=== PATIENT | female | born 1960 | race Two or more races ===

== ENCOUNTER 2022-02-10 03:44 | Inpatient (IN) | payer MEDICARE, OTHER ==
[~2022-02-10] VITALS: Ht 157.5 cm; Wt 81.6 kg
--- NOTE | 2022-02-10 03:57 | NUR ---
bebeto from home to er bed 9, aaox4. not in resp distress. brought in for a near syncope. pt was walking to the kitchen from the bedroom when she felt dizzy and lightheaded. pt then sat down, no fall reported. ems reported that she was positive for othostatic vs. md was at the bedside for eval. orders received, noted and carried out. iv line on the left forearm by ems. pt received 400ml of ns enroute by the ems. pt on monitor. will continue to monitor
[2022-02-10] MEDS ORDERED: IV NS 0.9% 1,000 ML BAG IV ONE (04:00)
--- NOTE | 2022-02-10 04:00 | NUR ---
phleb at bedside
--- NOTE | 2022-02-10 04:11 | NUR ---
covid swabn done
[2022-02-10 04:20] LABS: BASOPHILS % (AUTO) 0.6 % (0.0-2.0); EOSINOPHILS % (AUTO) 1.5 % (0.0-6.0); HEMATOCRIT 38 % (33-45); HEMOGLOBIN 12.5 g/dL (11.5-14.8); LYMPHOCYTES # (AUTO) 1.7 K/uL (0.8-4.8); LYMPHOCYTES % (AUTO) 26.5 % (20.0-44.0); MEAN CORPUSCULAR HGB CONC 33 g/dl (31.0-36.0); MEAN CORPUSCULAR VOLUME 87 fL (82-100); MONOCYTES # (AUTO) 0.5 K/uL (0.1-1.30); NEUTROPHILS # (AUTO) 4.2 K/uL (1.8-8.9); NEUTROPHILS % (AUTO) 63.4 % (43.0-81.0); PLATELET COUNT (AUTO) 149 K/uL (150-450); WHITE BLOOD COUNT (AUTO) 6.6 K/uL (4.3-11.0)
[2022-02-10] MEDS ORDERED: Magnesium 1GM/D5W 100ML PREMIX 200 ML IV ONE (04:36)
[2022-02-10] MEDS: Magnesium 1GM/D5W 100ML PREMIX 100 ML IV SCH ×2 (04:45→05:46)
[2022-02-10] MEDS ORDERED: ONDANSETRON HCL/PF 4 MG/2 ML VIAL IVP PRN (06:30)
[2022-02-10] MEDS ORDERED: ACETAMINOPHEN 325 MG TABLET PO PRN (06:30)
[2022-02-10 07:09] LABS: CALCIUM, SERUM 8.8 mg/dL (8.5-10.1); CARBON DIOXIDE 27 mmol/L (21-32); CHLORIDE 105 mmol/L (98-107); GLUCOSE 123 mg/dL (74-106); POTASSIUM 4.2 mmol/L (3.5-5.1); SODIUM SERUM 141 mmol/L (136-145); UREA NITROGEN, BLOOD 17 mg/dL (7-18)
--- NOTE | 2022-02-10 07:23 | NUR ---
PATIENT AWAKE, AAOX3, BREATHING EVEN AND NON LABORED, ASSISTED TO THE RESTROOM, WALKED WITH STEADY GAIT
[2022-02-10 08:21] LABS: BILIRUBIN,URINE NEGATIVE (NEGATIVE); COLOR,URINE YELLOW (YELLOW); LEUKOCYTE ESTERASE ,URINE NEGATIVE (NEGATIVE); NITRITE, URINE NEGATIVE (NEGATIVE); PROTEIN,URINE NEGATIVE (NEGATIVE); UGLUCOSE 250 MG/DL mg/dL (NEGATIVE); UROBILINOGEN,URINE 0.2 EU/dL (0.2)
--- NOTE | 2022-02-10 08:40 | NUR ---
room 320-1
[2022-02-10 08:56] LABS: BACTERIA,URINE None seen /HPF (None Seen); RBC,URINE 0-2 /HPF (0-2); SQUAMOUS EPITHELIAL CELL,UR None Seen /HPF (None Seen); WBC,URINE 0-2 /HPF (0-3)
--- NOTE | 2022-02-10 09:06 | NUR ---
PT TRANSFERRED TO FLOOR FOLLOWING ACLS PROTOCOL WITH RN AND EMT. VS REMAINED STABLE.
--- NOTE | 2022-02-10 09:30 | NUR ---
SOLUTION CONSULTANT ADMITTING NOTES RECEIVED PATIENT FROM ER. PATIENT MEDICALLY STABLE ON ROOM AIR; BREATHING EVEN AND UNLABORED. MILD UPPER ABDOMINAL PAIN PRESENT. VITAL SIGNS STABLE. WILL CONTINUE TO MONITOR PATIENT.
[2022-02-10 09:52] LABS: CREATININE 0.9 mg/dL (0.6-1.3)
[2022-02-10] MEDS: ASPIRIN 81 MG TAB.CHEW PO SCH (10:52)
[2022-02-10] MEDS: ATORVASTATIN 10 MG TABLET PO SCH (10:52)
[2022-02-10] MEDS: PANTOPRAZOLE 40 MG TABLET.DR PO SCH (10:52)
[2022-02-10] MEDS: IV NS 0.9% 1,000 ML IV PRN (11:26)
[2022-02-10 12:47] LABS: THYROID STIMULATING HORMONE 3.304 uIU/mL (0.358-3.74)
[2022-02-10 16:00] VITALS: BP 126/68
--- NOTE | 2022-02-10 19:33 | NUR ---
TEACHER KINDERGARTEN CLOSING NOTE PATIENT RESTING IN BED. PT ON ROOM AIR, NO S/SX OF DISTRESS OR SOB NOTED, BREATHING EVEN AND UNLABORED. PT ON EXTERNAL PROFESSOR OF EXERCISE SCIENCE READING SINUS RHYTHM. IV ACCESS ON R WRIST #22G WITH NS RUNNING AT 75 MLS/HR. ALL NEED ATTENDED DURING THE DAY. SAFETY MEASURES IN PLACE: CALL LIGHT WITHIN REACH, SIDE RAILS UP X 2, BED LOCKED IN LOWEST POSITION, HOB ELEVATED, BED ALARM ON. ENDORSE TO COMPUTER NUMERIC CONTROL SETTER NURSE FOR CHRISTEN.
--- NOTE | 2022-02-10 19:43 | NUR ---
MS/TELE/RN RECEIVED PATIENT IN BED AWAKE, ALERT, ORIENTED, COMFORTABLE, NO DISTRESS NOTED, NO C/O PAIN, NO C/O DIZZINESS, CALL LIGHT IN REACH, FALL PRECAUTIONS PER PROTOCOL IMPLEMENTED. NEEDS ATTENDED, WILL MONITOR.
--- NOTE | 2022-02-10 19:54 | NUR ---
MS/TELE/RN TYLENOL 650 MG PO WAS GIVEN FOR C/O HEADACHE.
[2022-02-10 20:00] VITALS: BP_SYST 139; BP_SYST 157; BP_SYST 172; BP_SYST 175; BP_DIAS 64; BP_DIAS 68; BP_DIAS 79; BP_DIAS 85
[2022-02-11] VITALS: BP 143/58
--- NOTE | 2022-02-11 00:16 | NUR ---
MS/TELE/RN PATIENT IS SLEEPING, APPEARS COMFORTABLE, NO DISTRESS NOTED, CALL LIGHT IN REACH, WILL CONTINUE TO MONITOR.
[2022-02-11] MEDS: IV NS 0.9% 1,000 ML IV PRN (02:09)
--- NOTE | 2022-02-11 05:59 | NUR ---
MS/TELE/RN PATIENT IS AWAKE BRUSHING TEETH, COMFORTABLE, NO CHANGE IN CONDITION, ALL NEEDS ATTENDED AT THIS TIME, WILL CONTINUE TO MONITOR.
[2022-02-11 06:41] LABS: BASOPHILS % (AUTO) 0.8 % (0.0-2.0); HEMATOCRIT 37 % (33-45); HEMOGLOBIN 12.4 g/dL (11.5-14.8); LYMPHOCYTES # (AUTO) 1.9 K/uL (0.8-4.8); LYMPHOCYTES % (AUTO) 41.4 % (20.0-44.0); MEAN CORPUSCULAR HGB CONC 33 g/dl (31.0-36.0); MEAN CORPUSCULAR VOLUME 87 fL (82-100); MONOCYTES # (AUTO) 0.4 K/uL (0.1-1.30); MONOCYTES % (AUTO) 8.4 % (2.0-12.0); NEUTROPHILS # (AUTO) 2.1 K/uL (1.8-8.9); NEUTROPHILS % (AUTO) 46.4 % (43.0-81.0); PLATELET COUNT (AUTO) 136 K/uL (150-450); RED BLOOD CELL COUNT(AUTO) 4.28 MIL/uL (4.0-5.2); WHITE BLOOD COUNT (AUTO) 4.5 K/uL (4.3-11.0)
[2022-02-11 07:19] VITALS: BP 160/79
--- NOTE | 2022-02-11 07:37 | NUR ---
LICENSED PHYSICAL THERAPIST OPENNING NOTE PATIENT RESTING IN BED AOX4,ON ROOM AIR EDIE,WELL.NO S/SX OF DISTRESS OR SOB NOTED, BREATHING EVEN AND UNLABORED. PT ON EXTERNAL CREDIT CONTROL MANAGER READING SINUS RHYTHM. IV ACCESS ON R WRIST #22G WITH NS RUNNING AT 75 MLS/HR.CALL LIGHT WITHIN REACH, SIDE RAILS UP X 2, BED LOCKED IN LOWEST POSITION, HOB ELEVATED, BED ALARM ON.CONTINUE TO MONITOR.
[2022-02-11 07:54] LABS: ALBUMIN 3.5 g/dL (3.4-5.0); BILIRUBIN,TOTAL 0.5 mg/dL (0.2-1.0); CALCIUM, SERUM 8.3 mg/dL (8.5-10.1); CREATININE 0.7 mg/dL (0.6-1.3); MAGNESIUM 2.7 mg/dL (1.8-2.4); PHOSPHORUS 3.9 mg/dL (2.5-4.9); POTASSIUM 3.5 mmol/L (3.5-5.1)
[2022-02-11 08:00] VITALS: BP 181/80
[2022-02-11] MEDS: ATORVASTATIN 10 MG TABLET PO SCH (08:13)
[2022-02-11] MEDS: ASPIRIN 81 MG TAB.CHEW PO SCH (08:13)
[2022-02-11] MEDS: PANTOPRAZOLE 40 MG TABLET.DR PO SCH (08:13)
[2022-02-11] MEDS ORDERED: BENA20TA9 PO (08:14)
[2022-02-11] MEDS ORDERED: LANS30CA56 PO (08:14)
[2022-02-11] MEDS ORDERED: GABA-532 PO (08:14)
[2022-02-11] MEDS ORDERED: ASPI-1420 PO (08:14)
[2022-02-11] MEDS ORDERED: VORT10TA PO (08:14)
[2022-02-11] MEDS ORDERED: CLOP75TA15 PO (08:14)
[2022-02-11] MEDS ORDERED: EZET10TA32 PO (08:14)
[2022-02-11] MEDS ORDERED: CARV25TA2 PO (08:14)
[2022-02-11] MEDS ORDERED: CLOPIDOGREL BISULFATE 75 MG TABLET PO SCH (10:00)
[2022-02-11] MEDS ORDERED: Medication Not On Formulary EA (Lansoprazole 30 MG) PO SCH (10:00)
[2022-02-11] MEDS ORDERED: ASPIRIN EC 81 MG TABLET.DR PO SCH (10:00)
[2022-02-11] MEDS ORDERED: BENAZEPRIL HCL 20 MG TABLET PO SCH (10:00)
[2022-02-11] MEDS ORDERED: EZETIMIBE 10 MG TABLET PO SCH (10:00)
[2022-02-11 10:24] VITALS: BP 181/80
--- NOTE | 2022-02-11 14:50 | NUR ---
SCANNER SUPERVISOR NOTE RECEIVED DISCHARGE ORDER.PATIENT IS AOX4.PATIENTIS BREATHING EVENLY AND NONLABORED ON ROOM AIR.SIGNS OF SOB/DISTRESS NOTED.NO COMPLAINE OF PAIN/DISCOMFORT.PATIENT WAS GIVEN A DISCHARGE INSTRUCTION WITH DAUGTHER PRESENT,BOTH VERBALIZED UNDERSTANDING.ALL BELONGINGS ACCOUNTED FOR AND BELONGINGS FORM SIGN.IV ACCESS REMOVED.PRESSURE DRESSING APPLIED NO BLEEDING NOTED..PATIENT LEFT IN STABLE CONDITION VIA PRIVATE CAR.
[2022-02-11] MEDS ORDERED: CARVEDILOL 12.5 MG TABLET PO SCH (21:00)
[2022-02-11] MEDS ORDERED: GABAPENTIN 100 MG CAPSULE PO SCH (22:00)
== END 2022-02-11 15:00 | disposition home or self-care (01) | DRG 312 ==
LOC: ER 03:46 → TRANSITION 07:56 → TELE 08:46
DX: I95.1 Orthostatic hypotension (principal); I25.10 Atherosclerotic heart disease of native coronary artery without angina pectoris; Z95.1 Presence of aortocoronary bypass graft; Z20.822 Contact with and (suspected) exposure to COVID-19; I45.81 Long QT syndrome; E11.9 Type 2 diabetes mellitus without complications; E78.5 Hyperlipidemia, unspecified; I10 Essential (primary) hypertension; K29.70 Gastritis, unspecified, without bleeding; E66.9 Obesity, unspecified; Z95.5 Presence of coronary angioplasty implant and graft; Z68.32 Body mass index [BMI] 32.0-32.9, adult; K76.0 Fatty (change of) liver, not elsewhere classified
CPT/HCPCS: 36415; 71045-TC; 76700-TC; 80048-TC; 80053-TC; 80061-TC; 81001; 83735-TC; 84100-TC; 84439-TC; 84443-TC; 84484-TC; 85025-TC; 87081-TC; 93307-TC; 97116-TC; 97530-TC; C9803; G0378; J2405; J3475; J7030